=== PATIENT | female | born 1970 | race Caucasian/White ===

== ENCOUNTER → 2017-03-08 | Outpatient (CLI) | payer OTHER | LOC: FIMAGING 18:40 | PROVIDERS: ATTEND Physical Medicine & Rehabilitation | DX: M54.2 Cervicalgia (principal); M50.222 Other cervical disc displacement at C5-C6 level; M50.322 Other cervical disc degeneration at C5-C6 level; R93.8 Abnormal findings on diagnostic imaging of other specified body structures ==

== ENCOUNTER → 2017-04-11 | Day surgery (SDC) | payer OTHER ==
[~2017-04-11] MED LIST: BUPIVACAINE 0.5% 30 ML SDV ONE; GABAPENTIN 300 MG CAP PO ONE; LIDOCAINE 1% 300 MG/30 ML SDV ONE
== END | disposition home or self-care (01) ==
LOC: FIMAGING 07:15
PROVIDERS: ATTEND Family Medicine
PROC: 0HBT3ZX Excision of Right Breast, Percutaneous Approach, Diagnostic (ICD-10-PCS; principal; 2017-04-11)
PROC: BH00ZZZ Plain Radiography of Right Breast (ICD-10-PCS; principal; 2017-04-11)
DX: D24.1 Benign neoplasm of right breast (principal); R92.0 Mammographic microcalcification found on diagnostic imaging of breast; N60.11 Diffuse cystic mastopathy of right breast; N60.81 Other benign mammary dysplasias of right breast

== ENCOUNTER 2017-05-19 06:33 | Day surgery (SDC) | payer OTHER ==
[2017-05-19] MEDS ORDERED: LIDOCAINE 1% 300 MG/30 ML SDV ONE ×2 (07:22→09:17)
[2017-05-19] MEDS ORDERED: LR 1,000 ML IV ONE (07:43)
[2017-05-19] MEDS ORDERED: LIDOCAINE 1% 2 ML INJ ID PRN (07:43)
[2017-05-19] MEDS ORDERED: BUPIVACAINE 0.5% 10 ML SDV ONE ×2 (09:13→09:14)
[2017-05-19] MEDS ORDERED: AVITENE POWDER 1 GM JAR TP ONE (09:17)
--- NOTE | 2017-05-19 09:32 | PDANEPAE ---
ANE History of Present Illness 47 yo female with R breast mass. ANE Past Medical History - Cardiovascular History Hx Hypertension: No Hx Arrhythmias: No Hx Chest Pain: No Hx Coronary Artery / Peripheral Vascular Disease: No Hx CHF / Valvular Disease: No Hx Palpitations: No Cardiovascular History Comment: HX ANGIOGRAM - 2014 - Pulmonary History Hx COPD: No Hx Asthma/Reactive Airway Disease: No Hx Recent Upper Respiratory Infection: No Hx Oxygen in Use at Home: No Hx Sleep Apnea: No Sleep Apnea Screening Result - Last Documented: Negative Pulmonary History Comment: SEASONAL ALLERGIES - Neurologic History Hx Cerebrovascular Accident: No Hx Seizures: No Hx Dementia: No - Endocrine History Hx Diabetes: No Hypothyroid: No - Renal History Hx Renal Disorders: No - Liver History Hx Hepatic Disorders: No Hepatic History Comment: JAMES - Neurological & Psychiatric Hx Hx Neurological and Psychiatric Disorders: Yes Neurological / Psychiatric History Comment: NEUROPATHY. CERVICAL PAIN - Cancer History Hx Cancer: No - Congenital Disorder History Hx Congenital Disorders: No - GI History GERD: no Hx Gastrointestinal Disorders: No Gastrointestinal History Comment: IBS CONTROLLED - Other Health History Other Health History: PAST HX ANEMIA - Chronic Pain History Chronic Pain: Yes - Surgical History Prior Surgeries: APPENDECTOMY. CHOLECYSTECTOMY. WRIST REPAIR L. ANGIOGRAM 2013 ANE Review of Systems Review of Systems: - Exercise capacity METS (RN): 4 METS - Systems Constitutional: Reports: no symptoms Cardiac: Reports: no symptoms Respiratory: Reports: no symptoms Muscolosketal: Reports: neck pain (with peripheral UE neuropathy L > R) ANE Patient History - Allergies Allergies/Adverse Reactions: adhesive tape Allergy (Verified 05/15/17 11:58) BURNING RASH latex Allergy (Verified 05/15/17 11:58) HEADACHE, & NAUSEA Penicillins Allergy (Verified 01/19/16 08:53) Anaphylaxis - Home Medications Home medications: home medication list seen and reviewed Home Medications: GABAPENTIN 01/19/16 [Last Taken 05/19/17 06:25] Aleve 05/15/17 [Last Taken 05/11/17] Tylenol Extra Strength 05/15/17 [Last Taken 05/19/17 06:00] - NPO status NPO Since - Liquids (Date): 05/19/17 NPO Since - Liquids (Time): 06:30 NPO Since - Solids (Date): 05/18/17 NPO Since - Solids (Time): 20:00 - Anes Hx Anes Hx: post operative nausea and vomiting - Smoking Hx Smoking Status: Former smoker Marijuana use: No - Family Anes Hx Family Anes Hx: neg - N/A Family Hx Anesthesia Complications: NEG ANE Labs/Vital Signs - Vital Signs Blood Pressure: 111/68 Heart Rate: 73 Respiratory Rate: 16 O2 Sat (%): 99 Height: 165.1 cm Weight: 68.039 kg ANE Physical Exam - Airway Neck exam: FROM Mallampati Score: Class 2 Mouth exam: normal dental/mouth exam - Pulmonary Pulmonary: clear to auscultation - Cardiovascular Cardiovascular: regular rate and rhythym - ASA Status ASA Status: II ANE Anesthesia Plan Anesthesia Plan: GA with mask Total IV Anesthesia: Yes
[2017-05-19] MEDS ORDERED: ceFAZolin 2 GM/SWFI 2 GM/20 ML SYR IVP ONE (09:37)
--- NOTE | 2017-05-19 09:40 | PDHPUP ---
History & Physical Update H&P update statement: This history and physical update is based on an assessment of the patient which was completed after admission or registration (within 24 hours), but prior to the surgery/procedure. H&P update: H&P reviewed & patient examined, no change in patient's condition since H&P completed
[2017-05-19] MEDS ORDERED: DEXAMETHASONE 4 MG/ML VIAL ONE (09:42)
[2017-05-19] MEDS ORDERED: LIDOCAINE 2% 5 ML SDV ONE (09:42)
[2017-05-19] MEDS ORDERED: PROPOFOL/EMULSION 500 MG/50 ML BOTTLE IV ONE (09:43)
[2017-05-19] MEDS ORDERED: fentaNYL 100 MCG/2 ML INJ ONE (09:43)
[2017-05-19] MEDS ORDERED: ceFAZolin 2 GM/SWFI 20 ML SYR IVP ONE (09:43)
[2017-05-19] MEDS ORDERED: SCOPOLAMINE HYDROBROMIDE 1 MG/3 DAYS PATCH TD ONE (09:45)
[2017-05-19] MEDS ORDERED: ONDANSETRON 4 MG/2 ML VIAL ONE ×2 (10:31→11:45)
[2017-05-19] MEDS ORDERED: KETOROLAC 30 MG/1 ML SDV ONE (10:31)
[2017-05-19] MEDS ORDERED: PROPOFOL 200 MG/20 ML VIAL ONE (10:46)
--- NOTE | 2017-05-19 11:08 | POSTANESTH ---
Post Anesthetic Evaluation Cardiovascular Status: Normal, Stable Respiratory Status: Normal, Stable Level of Consciousness/Mental Status: Can Participate in Eval, Mildly Sleepy, Arousable Pain Control: Adequate, Prn Tx Ordered Nausea/Vomiting Control: Adequate, Prn Tx Ordered Complications Possibly Related to Anesthesia: None Noted
[2017-05-19] MEDS ORDERED: ONDANSETRON DISINTEGRATING 4 MG TAB PO PRN (11:12)
[2017-05-19] MEDS ORDERED: traMADol 50 MG TAB PO PRN (11:13)
[2017-05-19] MEDS ORDERED: ACETAMINOPHEN 500 MG TAB PO ONE (11:14)
--- NOTE | 2017-05-19 11:17 | POSTOPPROG ---
Post Op Note Date of Operation: 05/19/17 Surgeon: Alf Rubio (, FACS) Anesthesiologist: Dyan Miranda DO Anesthesia: Other (Specify) (MAC/IV general) Pre-op Diagnosis: right breast ALH/microcalcifications Post-op Diagnosis: same Procedure: right excisional breast biopsy with pre op mammo guide needle loc Findings: Ca++ confirmed by specimen mammogram Inf/Abcess present in the surg proc area at time of surgery?: No Complications: none
[2017-05-19 11:36] VITALS: TEMP 97.7
[2017-05-19] MEDS ORDERED: PROMETHAZINE HCL 25 MG/ML INJ IVP PRN (12:00)
[2017-05-19] MEDS ORDERED: LR 500 ML IV PRN (12:00)
[2017-05-19] MEDS ORDERED: NALOXONE HCL 0.4 MG/ML INJ IVP PRN (12:00)
[2017-05-19] MEDS ORDERED: ALBUTEROL 3 ML DEYVIAL IH PRN (12:00)
[2017-05-19] MEDS ORDERED: fentaNYL 100 MCG/2 ML INJ IVP PRN (12:00)
[2017-05-19] MEDS ORDERED: ACETAMINOPHEN 500 MG TAB PO PRN (12:00)
[2017-05-19] MEDS ORDERED: PROMETHAZINE HCL 25 MG/ML INJ ONE (12:09)
[2017-05-19 12:20] VITALS: BP 120/72; O2SAT 96
--- NOTE | 2017-05-19 12:22 | GOP ---
[f rep st] OPERATIVE REPORT DATE OF OPERATION: 05/19/2017 SURGEON: Alf Rubio MD, FACS ANESTHESIA: Intravenous general. ANESTHESIOLOGIST: Dyan Boudreaux DO PREOPERATIVE DIAGNOSIS: 1. Right breast atypical lobular hyperplasia, status post core needle biopsy. 2. Residual microcalcifications, right breast upper outer quadrant. POSTOPERATIVE DIAGNOSIS: 1. Right breast atypical lobular hyperplasia, status post core needle biopsy. 2. Residual microcalcifications, right breast upper outer quadrant. PROCEDURE PERFORMED: Right breast excisional biopsy with preoperative mammogram guided needle localization. FINDINGS: Microcalcifications confirmed by specimen mammogram. Dense fibrocystic glandular tissue in the upper outer quadrant of the right breast. Tissue submitted for specimen mammogram and subsequently to Pathology for permanent section. ESTIMATED BLOOD LOSS: 10 cc. DESCRIPTION OF PROCEDURE: After informed consent was obtained, the patient was brought to the operating room and placed under deep sedation. The right breast was prepped and draped in the usual fashion. Before proceeding, a time-out and identification of the patient was performed. The patient had a Kopans wire exiting the breast in the upper outer quadrant approximately 10 o'clock position directed medially and cephalad. The skin inferior and medial to the wire entry site was infiltrated with 0.25% Marcaine and 1% lidocaine. A circumareolar incision was made and carried through the skin and subcutaneous tissues. The wire was intercepted into the incision and the breast tissue around the shaft and tip of the wire was excised. It should be mentioned that the target calcifications were remote from the clip which had backed out of the breast tissue at the time of her biopsy by a distance of approximately 20 mm. The wire was positioned, however, such that the calcifications were centered within the specimen. After the specimen was removed, it was marked with a margin-marker kit, separately designating the superior, inferior, anterior, posterior, medial, and lateral margins. The breast tissue was then submitted for specimen mammogram. Specimen mammogram confirmed the calcifications to be within the specimen. However, the clip was not and I suspect it was at the far lateral edge of the specimen. Cavity was not reexcised. Hemostasis was secured within the cavity using cautery. Subcutaneous tissues were approximated with 3-0 Monocryl suture. Skin was closed with 4-0 Monocryl suture in a subcuticular fashion. Mastisol and Steri- Strips were applied. Needle, sponge, and instrument count were correct. COMPLICATIONS: None. /[id number]/MODL MTDD
[2017-05-19 12:30] VITALS: PULSE 65; RESP 14
[2017-05-20] MEDS ORDERED: PATCH REMOVAL 1 EA PATCH TD SCH (10:00)
== END 2017-05-19 13:41 | disposition home or self-care (01) ==
LOC: FSGY 06:33
PROVIDERS: ATTEND Surgery
PROC: 0HBT3ZX Excision of Right Breast, Percutaneous Approach, Diagnostic (ICD-10-PCS; principal; 2017-05-19 09:30)
DX: N60.91 Unspecified benign mammary dysplasia of right breast (principal); R92.0 Mammographic microcalcification found on diagnostic imaging of breast
CPT/HCPCS: J0690; J1100; J1885; J2405; J2550; J2704; J3010

== ENCOUNTER → 2018-02-06 | Outpatient (CLI) | payer OTHER ==
[~2018-02-06] MED LIST changes: -BUPIVACAINE 0.5% 30 ML SDV ONE; -GABAPENTIN 300 MG CAP PO ONE; +GADOBUTROL 10 ML VIAL IVP ONE; -LIDOCAINE 1% 300 MG/30 ML SDV ONE
== END ==
LOC: FIMAGING 13:28
PROVIDERS: ATTEND Physical Medicine & Rehabilitation
DX: G95.0 Syringomyelia and syringobulbia (principal); M48.02 Spinal stenosis, cervical region; M43.12 Spondylolisthesis, cervical region; M48.04 Spinal stenosis, thoracic region; M51.34 Other intervertebral disc degeneration, thoracic region
CPT/HCPCS: A9585

== ENCOUNTER → 2018-04-05 | Outpatient (CLI) | payer OTHER | LOC: FIMAGING 08:22 | PROVIDERS: ATTEND Physical Medicine & Rehabilitation | PROC: CP151ZZ Planar Nuclear Medicine Imaging of Spine using Technetium 99m (Tc-99m) (ICD-10-PCS; principal; 2018-04-05) | DX: M47.814 Spondylosis without myelopathy or radiculopathy, thoracic region (principal); M46.94 Unspecified inflammatory spondylopathy, thoracic region | CPT/HCPCS: 78300; A9503 ==

== ENCOUNTER → 2018-06-11 | Outpatient (CLI) | payer OTHER | LOC: FCPNEURO 22:11 | PROVIDERS: ATTEND Student in an Organized Health Care Education/Training Program | DX: G47.33 Obstructive sleep apnea (adult) (pediatric) (principal) ==